=== PATIENT | male | born 1995 | race Hispanic/Latino ===

== ENCOUNTER 2019-12-03 10:01 | Emergency (ER) | payer SELFPAY ==
[2019-12-03 10:10] VITALS: BP 146/103
--- NOTE | 2019-12-03 10:37 | Emergency Department Report ---
ED General Adult HPI - General Chief complaint: Psych Stated complaint: LETITIA MARTI Time Seen by Provider: 12/03/19 10:31 Source: patient Mode of arrival: Ambulatory Limitations: No Limitations - History of Present Illness Initial comments: This is a 24-year old male who states he has previously been prescribed Adderall. He denies any other psychiatric history. He is not violent or suicidal. He complains of symptoms of more than 3 weeks duration without any acute change. The patient states that he has been to [facility] for evaluation. He states he had an itching in his groin. He relates that he had an ultrasound test which showed fluid. There was no treatment advised. He states that sometimes he has itching in his groin. He told the triage nurse he thinks he has a larva down there. He told me that the fluid in his groin has moved up to his abdomen. He states he knows that because he hears a gurgling sound in his stomach. He has n ot had any recent vomiting or fever. He does not complain of abdominal pain. He states that on Friday he opened his mouth and saw a bug fly up onto "the roof". Within reasonable medical certainty, the patient appears to be having a variety of somatic delusions. I informed him that these type symptoms may be consistent with a psychiatric condition. He then told me that when he drives around in his car he gets a metallic taste in his mouth. He is not suicidal, agitated or hallucinating. He is fully ambulatory and able to care for his activities of daily living. I did ask why he did not return to [facility] where he had at least 2 visits for these symptoms. He had no explanation. I told him we could pursue obtaining his records. However, he does not have any indication of an emergency medical condition. He did not wait for the records review from [facility] and left. -: week(s) Associated Symptoms: denies other symptoms, other - Related Data Allergies Allergy/AdvReac Type Severity Reaction Status Date / Time No Known Allergies Allergy Unverified 12/03/19 10:07 ED Review of Systems ROS: Stated complaint: LETITIA MARTI Other details as noted in HPI Constitutional: denies: chills, fever Eyes: denies: eye pain, eye discharge, vision change ENT: other (A metallic taste in the mouth). denies: ear pain, throat pain Respiratory: denies: cough, shortness of breath, wheezing Cardiovascular: denies: chest pain, palpitations Endocrine: no symptoms reported Gastrointestinal: other (Gurgling bowel sounds essentially borborygmus). denies: abdominal pain, nausea, diarrhea Genitourinary: denies: urgency, dysuria Musculoskeletal: denies: back pain, joint swelling, arthralgia Skin: denies: rash, lesions Neurological: denies: headache, weakness, paresthesias Psychiatric: other (Apparent somatic delusions). denies: anxiety, depression Hematological/Lymphatic: denies: easy bleeding, easy bruising ED Past Medical Hx - Past Medical History Previous Medical History?: No - Surgical History Past Surgical History?: No - Social History Smoking Status: Current Every Day Smoker Substance Use Type: Alcohol, Marijuana, Methamphetamines ED Physical Exam - General Limitations: No Limitations General appearance: alert, in no apparent distress - Head Head exam: Present: atraumatic, normocephalic - Eye Eye exam: Present: normal appearance. Absent: scleral icterus - ENT ENT exam: Present: mucous membranes moist - Neck Neck exam: Present: normal inspection. Absent: tenderness, meningismus - Respiratory Respiratory exam: Present: normal lung sounds bilaterally. Absent: respiratory distress - Cardiovascular Cardiovascular Exam: Present: regular rate, normal rhythm. Absent: systolic murmur, diastolic murmur, rubs, gallop - GI/Abdominal GI/Abdominal exam: Present: soft, normal bowel sounds. Absent: distended, tenderness, guarding, rebound, rigid, organomegaly, mass, bruit, pulsatile mass - Rectal Rectal exam: Present: deferred - Extremities Exam Extremities exam: Present: normal inspection - Back Exam Back exam: Present: normal inspection - Neurological Exam Neurological exam: Present: alert, oriented X3 - Psychiatric Psychiatric exam: Present: normal mood, flat affect - Skin Skin exam: Present: warm, dry, intact, normal color. Absent: rash ED Course Vital Signs 12/03/19 10:08 Temperature 97.6 F Pulse Rate 98 H Respiratory 20 Rate Blood Pressure 146/103 O2 Sat by Pulse 100 Oximetry Critical care attestation.: If time is entered above; I have spent that time in minutes in the direct care of this critically ill patient, excluding procedure time. ED Disposition Clinical Impression: Somatic delusion, Polysubstance abuse [facility] Is [facility] being admited?: No Does the pt Need Aspirin: No Condition: Stable Time of Disposition: 10:39
== END 2019-12-03 10:35 | disposition left against medical advice (07) ==
LOC: ED 10:01
DX: F22 Delusional disorders (principal); F15.10 Other stimulant abuse, uncomplicated; F17.200 Nicotine dependence, unspecified, uncomplicated; F12.10 Cannabis abuse, uncomplicated
CPT/HCPCS: 99281